=== PATIENT | male | born 1990 | race African-American/Black ===

== ENCOUNTER 2016-12-29 21:11 | Emergency (ER) | payer OTHER ==
[~2016-12-29] VITALS: Ht 177.8 cm; Wt 81.7 kg
[~2016-12-29 21:11] MED LIST: IBUPROFEN 600600 M1 PO; NORCO 5-325 TA1 EACH PO; TRAMADOL 50 MG50 MG PO
[2016-12-29 21:12] VITALS: BP 142/82
[2016-12-29] MEDS ORDERED: MOBIC7.5 MG PO (21:43)
[2016-12-29] MEDS ORDERED: PENICILLIN V P500 MG PO (21:43)
== END 2016-12-29 22:10 | disposition home or self-care (01) ==
LOC: ER 21:11
DX: K08.89 Other specified disorders of teeth and supporting structures (principal); F17.210 Nicotine dependence, cigarettes, uncomplicated; F10.99 Alcohol use, unspecified with unspecified alcohol-induced disorder

== ENCOUNTER 2017-01-03 20:48 | Emergency (ER) | payer OTHER ==
[~2017-01-03] VITALS: Ht 177.8 cm; Wt 86.2 kg
[~2017-01-03 20:48] MED LIST changes: +MOBIC7.5 MG PO; +PENICILLIN V P500 MG PO
[2017-01-03 20:49] VITALS: BP 156/84
== END 2017-01-03 21:34 | disposition left against medical advice (07) ==
LOC: ER 20:48
DX: Z53.21 Procedure and treatment not carried out due to patient leaving prior to being seen by health care provider (principal)

== ENCOUNTER 2019-04-16 10:00 | Emergency (ER) | payer OTHER ==
[~2019-04-16] VITALS: Ht 175.3 cm; Wt 86.2 kg
[2019-04-16 10:25] LABS: URINE BLOOD TRACE (Negative); URINE CLARITY CLOUDY; URINE COLOR YELLOW; URINE GLUCOSE-RANDOM* NEGATIVE (Negative); URINE KETONES NEGATIVE (Negative); URINE NITRITE-REFLEX NEGATIVE (Negative); URINE PROTEIN (DIPSTICK) TRACE (Negative); URINE SPECIFIC GRAVITY >= 1.030 (1.005-1.035)
[2019-04-16 10:32] LABS: ICTOTEST (BILI CONFIRMATORY) Negative (Negative); URINE BILIRUBIN NEGATIVE (Negative); URINE LEUKOCYTES-REFLEX 1+ (Negative)
[2019-04-16 10:48] LABS: CASTS None Seen /LPF (None Seen); MUCUS 0-3 Light strn/LPF (None Seen); SQUAMOUS 0-3 Few /LPF (0-3); URINE WBC-REFLEX >25 Many /HPF (0-5)
[2019-04-16 10:53] LABS: BACTERIA-REFLEX 1-9 Few /HPF (None Seen); CRYSTALS None Seen /LPF (None Seen); URINE RBC 0-2 Rare /HPF (0-2)
[2019-04-16] MEDS ORDERED: DOXYCYCLINE 10100 MG PO (11:17)
[2019-04-16] MEDS ORDERED: NAPROSYN500 MG PO (11:17)
[2019-04-16 12:00] VITALS: BP 112/65
== END 2019-04-16 12:30 | disposition home or self-care (01) ==
LOC: ER 10:00
PROVIDERS: Emergency Medicine
DX: N45.1 Epididymitis (principal); N34.2 Other urethritis; F17.210 Nicotine dependence, cigarettes, uncomplicated

== ENCOUNTER 2020-09-27 09:14 | Emergency (ER) | payer OTHER ==
[~2020-09-27] VITALS: Ht 177.8 cm; Wt 91.2 kg
[~2020-09-27 09:14] MED LIST changes: +DOXYCYCLINE 10100 MG PO; +NAPROSYN500 MG PO
[2020-09-27] MEDS ORDERED: DOXYCYCLINE 10100 MG PO (10:16)
[2020-09-27 10:37] VITALS: BP 114/78
== END 2020-09-27 10:40 | disposition home or self-care (01) ==
LOC: ER 09:14
PROVIDERS: Emergency Medicine
DX: A63.8 Other specified predominantly sexually transmitted diseases (principal); Z79.899 Other long term (current) drug therapy; F17.210 Nicotine dependence, cigarettes, uncomplicated